=== PATIENT | female | born 1980 | race Caucasian/White ===

== ENCOUNTER 2019-02-03 19:13 | Emergency (ER) | payer OTHER, MEDICAID, SELFPAY ==
[2019-02-03 19:24] VITALS: BP 118/84; PULSE 108; RESP 18; TEMP 36.6; O2SAT 91; BMI 53.1
--- NOTE | 2019-02-03 19:35 | ED.CHESTPAIN ---
HPI - Chest Pain General Chief Complaint: Chest Pain Stated Complaint: Chest pain, sob, nausea Time Seen by Provider: 02/03/19 19:34 Source: patient Mode of arrival: ambulatory Limitations: no limitations History of Present Illness HPI narrative: Patient is a 38-year-old female here for evaluation of a least 5 days of shortness of breath and chest pain. She was seen at an outside facility just a couple days ago where she had a CT angiogram of her chest which was negative. A chest x-ray which was unremarkable. An EKG which was unremarkable. Labs are unremarkable. she has followed up with her primary doctor. She had an appoint with her primary doctor today. They did discuss a referral to see Cardiology to have an ultrasound of her heart performed. She is currently on Coumadin secondary to a left upper extremity DVT. She states that she has been on Coumadin for the past 6 years. 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 She reports today with no changes in any of her symptoms over the past 5 days. She was told to come to this emergency department by her primary doctor to ?see if you can find anything that the other ER missed ? Review of Systems Constitutional Denies fever(s) and Denies headache(s) ENT Ears, Nose, Mouth, and Throat: Denies headache(s) Cardiovascular Reports chest pain, Denies diaphoresis, Denies edema, Denies palpitations and Reports dyspnea Respiratory Denies cough and Reports dyspnea Gastrointestinal Gastrointestinal: Denies abdominal pain, Reports nausea and Denies vomiting Genitourinary Denies dysuria Musculoskeletal Denies myalgias and Denies arthralgias Integumentary/Breasts Denies rash Neurologic Denies headache(s) Endocrine Denies palpitations Hematologic/Lymphatic Comments: On Coumadin Allergic/Immunologic Denies urticaria [facility] Medical History Anxiety (Acute) Bipolar 1 disorder (Acute) DVT (deep venous thrombosis) (Acute) Depression (Acute) Hypothyroid (Acute) Social History Smoking Status: Former smoker Social History Smoking Status: Former smoker Exam Initial Vital Signs Initial Vital Signs: Vital Signs Temperature 97.9 F 02/03/19 19:24 Pulse Rate 108 H 02/03/19 19:24 Respiratory Rate 18 02/03/19 19:24 Blood Pressure 118/84 02/03/19 19:24 Pulse Oximetry 91 02/03/19 19:24 Const General: cooperative, well developed, well groomed and No acute distress Orientation: alert and oriented x3 HENMT Head: normal to inspection and normocephalic Resp Effort & Inspection: normal respiratory effort Auscultation: clear to auscultation bilaterally Cardio Rate: tachycardic Rhythm: regular rhythm Pulses: radial pulses present GI Inspection: non-distended Palpation: soft, No firm and No tender Skin Lesions: no lesions Rashes: no rashes Neuro General: alert, awake and oriented x3 Cognition: normal cognition Speech: speech normal Extrem General: normal to inspection and capillary refill normal Psych Appearance: grossly normal and well kempt Course Orders Ordered: ED Orders 02/03/19 20:40 Basic Metabolic Panel Stat Complete Blood Count AUTO DIFF Stat Troponin I Stat Discontinued Medications Hydrocodone Bitart/Acetaminophen ([place] 5/325) 1 tab PO NOW ONE Stop: 02/03/19 20:46 Last Admin: 02/03/19 20:55 Dose: 1 tab Ondansetron HCl (Zofran Odt) 4 mg PO NOW ONE Stop: 02/03/19 20:46 Last Admin: 02/03/19 20:54 Dose: 4 mg Vital Signs - 8 hr 02/03/19 19:24 02/03/19 20:32 02/03/19 21:25 Temperature 97.9 F Pulse Rate 108 H 101 H 93 H Respiratory Rate 18 18 16 Blood Pressure 118/84 Blood Pressure [Left Arm] 125/62 99/59 L Pulse Oximetry 91 90 L 93 MDM - Chest Pain Lab Data Attestation: I reviewed the patient's lab results. Result diagrams: 02/03/19 20:40 02/03/19 20:40 Lab Results 02/03/19 02/03/19 02/03/19 Range/Units 20:40 20:40 20:40 WBC 10.3 (4.5-11.0) X10^3/uL RBC 5.55 H (4.0-5.2) X10^6/uL Hgb 16.6 H (12.0-16.0) g/dL Hct 49.4 H (36-46) % MCV 88.9 (80-100) fL MCH 29.8 (26-34) PG MCHC 33.6 (30-36) % RDW 14.2 (11.6-14.8) % Plt Count 243 (150-400) X10^3/uL Neut % (Auto) 52.7 (50-75) % Lymph % (Auto) 36.9 (25-40) % [place] % (Auto) 6.7 (3-14) % Eos % (Auto) 2.3 (2-4) % Baso % (Auto) 1.4 (0-2) % Neut # (Auto) 5400 (6288-5366) /uL Lymph # (Auto) 3800 (6181-9666) /uL [place] # (Auto) 700 (0-900) /uL Eos # (Auto) 200 (0-450) /uL Baso # (Auto) 100 (0-100) /uL Sodium 142 (137-145) mmol/L Potassium 3.2 L (3.4-5.1) mmol/L Chloride 101 (98-107) mmol/L Carbon Dioxide 31 (22-32) mmol/L BUN 17 (7-17) mg/dL Creatinine 0.70 (0.52-1.04) mg/dL Estimated GFR > 60.0 (>60) mL/min BUN/Creatinine Ratio 24.3 H (6-22) Glucose 109 H (70-100) mg/dL Calcium 9.6 (8.4-10.2) mg/dL Troponin I < 0.012 (0.01-0.034) ng/mL ECG Data Attestation: I personally reviewed and interpreted this ECG as follows: Prior ECG tracings: available for review Interpretation: Sinus tachycardia Ventricular rate of 101 Normal axis Normal QRS Normal QTC No ST T wave changes Comparison EKG from her last ER visit at the outside facility dated 02/01/2019. Today's EKG is unchanged from this 1 MDM Narrative Medical decision making narrative: Patient has had constant symptoms for the past couple days. Her troponin was negative today. Her EKG is unremarkable is unchanged from her prior ER visit. She had extensive cardiac workup at that time to include a CT of her chest which is negative for pulmonary embolism. She has no new symptoms today. Tried to reassure the patient that she is low risk for cardiovascular disease. She has already seen her primary doctor. She has referral in to see cardiology. We did discuss that she should talk with her primary doctor about a Holter monitor. Patient expressed understanding and agreement with plan. Discharge Plan Departure Patient Disposition: Home Clinical Impression: Chest pain Qualifiers: Chest pain type: unspecified Qualified Code(s): R07.9 - Chest pain, unspecified Discharge Date/Time: 02/03/19 22:00 Interventions: ED Discharge Assessment Last Done: 02/03/19 22:08 Instructions: DI for Atypical Chest Pain Activity Restrictions/Additional Instructions: Continue all of your scheduled medical appointments. Take all of your medications as directed. Return to the emergency department for any new or worsening symptoms
[2019-02-03 20:32] VITALS: BP 125/62; PULSE 101; RESP 18; O2SAT 90
[2019-02-03 20:51] LABS: Add Manual Diff / Slide Review NO; Basophils Absolute Auto 100 /uL (0-100); Basophils Percent Auto 1.4 % (0-2); Eosinophils Absolute Auto 200 /uL (0-450); Eosinophils Percent Auto 2.3 % (2-4); Hematocrit 49.4 % (36-46); Hemoglobin 16.6 g/dL (12.0-16.0); Lymphocytes Absolute Auto 3800 /uL (1100-4500); Lymphocytes Percent Auto 36.9 % (25-40); Mean Corpuscular HGB Conc 33.6 % (30-36); Mean Corpuscular Hemoglobin 29.8 PG (26-34); Mean Corpuscular Volume 88.9 fL (80-100); Monocytes Absolute Auto 700 /uL (0-900); Monocytes Percent Auto 6.7 % (3-14); Neutrophils Absolute Auto 5400 /uL (1500-7000); Neutrophils Percent Auto 52.7 % (50-75); Platelet Count 243 X10^3/uL (150-400); Red Blood Cell Count 5.55 X10^6/uL (4.0-5.2); Red Cell Distribution Width 14.2 % (11.6-14.8); White Blood Cell Count 10.3 X10^3/uL (4.5-11.0)
[2019-02-03] MEDS: ONDANSETRON 4 MG ODT PO (20:54)
[2019-02-03] MEDS: HYDROCODONE/ACET 5/325 TABLET 1 TAB PO (20:55)
--- NOTE | 2019-02-03 21:00 | PC.NURSE ---
Pt states SOB and CP for past 5 days, was seen at [facility] 2 days ago for same and Discharged after negative Labs, EKG, Xray and CT angiogram. PT states hx of DVT in left Upper extremity and on coumadin. a least 5 days of shortness of breath and chest pain. She was seen at an outside facility just a couple days ago where she had a CT angiogram of her chest which was negative. Pt states is here for a second opinion to ?see if you can find anything that the other ER missed ?. Pt also states she has also been recently stressed regarding moving to [place].
[2019-02-03 21:08] LABS: BUN Creatinine Ratio 24.3 (6-22); Blood Urea Nitrogen 17 mg/dL (7-17); Calcium 9.6 mg/dL (8.4-10.2); Carbon Dioxide 31 mmol/L (22-32); Chloride 101 mmol/L (98-107); Estimated Glomerular Filt Rate > 60.0 mL/min (>60); Glucose 109 mg/dL (70-100); HEMOLYSIS < 15 (0-50); Potassium 3.2 mmol/L (3.4-5.1); Sodium 142 mmol/L (137-145)
[2019-02-03 21:20] LABS: Troponin I < 0.012 ng/mL (0.01-0.034)
[2019-02-03 21:25] VITALS: BP 99/59; PULSE 93; RESP 16; O2SAT 93
== END 2019-02-03 22:00 | disposition home or self-care (01) ==
PROVIDERS: Emergency Provider Emergency Medicine
DX: R07.9 Chest pain, unspecified (principal); R06.02 Shortness of breath; R11.0 Nausea; Z79.01 Long term (current) use of anticoagulants
CPT/HCPCS: 36415; 80048; 84484; 85025; 93005; 99282; 99284

== ENCOUNTER 2019-02-07 12:51 | Emergency (ER) | payer OTHER, MEDICAID, SELFPAY ==
[2019-02-07 12:58] VITALS: BP 110/86; PULSE 89; RESP 17; TEMP 37.2; O2SAT 96; BMI 51.5
[2019-02-07 13:00] VITALS: BP 114/83; PULSE 91; RESP 14; O2SAT 92
--- NOTE | 2019-02-07 13:28 | PC.NURSE ---
Pt noted to have 02 87% on RA and placed on 2L by Ruth MAJOR. Lungs clear, pt reports she usually wears a CPAP machine w/oxygen at night to sleep but left it in [place] and hasn't had one since June of last year. She reports her anxiety has been going on for a couple of days but escalated today and came to a head. pt doesn't appear to be struggling to breath, reports anxiety feelings only. Bumped up oxygen to 3LNC. EKG within normal limits. Pt reports she needs to be back home by 5 to pickle maker her father as no one else is there to pick him up.
--- NOTE | 2019-02-07 13:32 | ED_ITS ---
HPI - Anxiety General Chief Complaint: Anxiety Stated Complaint: Panic attack / Anxiety Time Seen by Provider: 02/07/19 13:13 Source: patient and EMS Mode of arrival: EMS Limitations: no limitations History of Present Illness HPI narrative: Patient is a 38-year-old female who presents with anxiety attack. She says that it has been building for some time just all came to a head today. She feels extremely anxious but is overall feeling little bit better. She is noted to be slightly hypoxic she states that her normal oxygen level of 89 and 90% while in the hospitals. She is overweight and does have a history of DVT for which he takes Coumadin for. She denies any shortness of breath or chest pain. feels like this with her standard anxiety attack and is overall feeling better. Agrees to blood work. She actually was seen evaluated here just 4 days ago for shortness of breath and chest pain. She states today it was definitely anxiety things had been building up all week and then she exploded. Now she is feeling much better and calmer. MD complaint: anxiety Onset (ago): minute(s) Symptoms: palpitations and extremity numbness/tingling Severity: moderate Quality: improving Related Data Home Medications Medication Instructions Recorded Confirmed albuterol sulfate 1 puff INHALATION PRN PRN 02/07/19 02/07/19 clonazepam 2 mg PO DAILY 02/07/19 02/07/19 escitalopram oxalate 20 mg PO DAILY 02/07/19 02/07/19 hydrochlorothiazide 25 mg PO DAILY 02/07/19 02/07/19 lamotrigine 200 mg PO DAILY 02/07/19 02/07/19 levothyroxine 100 mcg PO DAILY 02/07/19 02/07/19 lorazepam 1 mg PO TID PRN 02/07/19 02/07/19 metoprolol succinate 100 mg PO DAILY 02/07/19 02/07/19 montelukast 10 mg PO DAILY 02/07/19 02/07/19 temazepam 30 mg PO BEDTIME 02/07/19 02/07/19 topiramate 50 mg PO DAILY 02/07/19 02/07/19 warfarin [Jantoven] 5 mg PO QPM 02/07/19 02/07/19 ziprasidone HCl 60 mg PO BID 02/07/19 02/07/19 Allergies Allergy/AdvReac Type Severity Reaction Status Date / Time codeine Allergy Verified 02/07/19 12:57 morphine Allergy Verified 02/07/19 12:57 Review of Systems Review of Systems ROS Unobtainable: All systems reviewed & are unremarkable except as noted in HPI and below Constitutional Denies chills, Denies fever(s), Denies lethargy and Denies weakness Eyes Denies change in vision, Denies eye discharge, Denies irritation and Denies loss of vision Cardiovascular Reports as per HPI, Reports palpitations and Denies dyspnea on exertion Respiratory Reports as per HPI, Denies cough, Denies hemoptysis, Denies pain on inspiration, Denies dyspnea on exertion and Denies stridor Gastrointestinal Gastrointestinal: Denies abdominal pain, Denies change in bowel habits, Denies diarrhea, Denies nausea and Denies vomiting Genitourinary Denies hematuria, Denies flank pain, Denies urinary incontinence and Denies urinary urgency Musculoskeletal Denies back pain, Denies muscle weakness, Denies numbness and Denies tingling Integumentary/Breasts Denies pruritus, Denies erythema, Denies rash and Denies wounds Neurologic Denies loss of vision, Denies numbness, Denies tingling and Denies weakness Psychiatric Reports as per HPI and Reports anxiety Endocrine Reports palpitations [facility] Medical History Anxiety (Acute) Bipolar 1 disorder (Acute) DVT (deep venous thrombosis) (Acute) Depression (Acute) Hypothyroid (Acute) Social History Smoking Status: Former smoker Social History Smoking Status: Former smoker Exam Initial Vital Signs Initial Vital Signs: Vital Signs Temperature 99.0 F 02/07/19 12:58 Pulse Rate 89 02/07/19 12:58 Respiratory Rate 17 02/07/19 12:58 Blood Pressure 110/86 02/07/19 12:58 Pulse Oximetry 96 02/07/19 12:58 GENERAL: Overweight alert female and in [no acute] distress. HEENT: Head atraumatic,EOMI, pupils reactive, face symmetric, CARDIOVASCULAR: Regular rate and rhythm without murmurs, rubs or gallops. RESPIRATORY: Breath sounds equal bilaterally, no wheezes rales or rhonchi. ABDOMEN: Soft, nontender. Normoactive bowel sounds all 4 quadrants. No guarding or rebound. : No CVA tenderness EXTREMITIES: Normal range of motion, no clubbing or edema. Neurovascularly intact NEUROLOGICAL: Alert and oriented x4.Normal gait and speech. Cranial nerves II through XII grossly intact. SKIN: Warm, dry, no laceration, no petechiae, no rashes or lesions. Course Orders Ordered: ED Orders 02/07/19 13:02 EKG-12 Lead Stat 02/07/19 13:41 XR chest 1V Stat 02/07/19 13:54 Complete Blood Count AUTO DIFF Stat Partial Thromboplastin Time Stat Prothrombin Time INR Stat Discontinued Medications Lorazepam (Ativan) 1 mg PO NOW ONE Stop: 02/07/19 13:38 Last Admin: 02/07/19 13:44 Dose: 1 mg Vital Signs - 8 hr 02/07/19 12:58 02/07/19 13:00 02/07/19 14:00 Temperature 99.0 F Pulse Rate 89 91 H 81 Respiratory Rate 17 14 18 Blood Pressure 110/86 Blood Pressure [Left Arm] 114/83 107/65 Pulse Oximetry 96 92 94 MDM - Anxiety Lab Data Attestation: I reviewed the patient's lab results. Result diagrams: 02/07/19 13:54 02/07/19 13:54 Lab Results 02/07/19 02/07/19 02/07/19 Range/Units 13:54 13:54 13:54 WBC 13.9 H (4.5-11.0) X10^3/uL RBC 5.75 H (4.0-5.2) X10^6/uL Hgb 16.9 H (12.0-16.0) g/dL Hct 51.0 H (36-46) % MCV 88.7 (80-100) fL MCH 29.4 (26-34) PG MCHC 33.1 (30-36) % RDW 14.1 (11.6-14.8) % Plt Count 279 (150-400) X10^3/uL Neut % (Auto) 65.0 (50-75) % Lymph % (Auto) 25.5 (25-40) % [place] % (Auto) 7.3 (3-14) % Eos % (Auto) 1.2 L (2-4) % Baso % (Auto) 1.0 (0-2) % Neut # (Auto) 9000 H (3664-4555) /uL Lymph # (Auto) 3500 (7191-2556) /uL [place] # (Auto) 1000 H (0-900) /uL Eos # (Auto) 200 (0-450) /uL Baso # (Auto) 100 (0-100) /uL PT 22.0 H (10.1-12.7) SECONDS INR 1.9 H (0.9-1.3) APTT 37 H (26.4-36.2) SECONDS Sodium Cancelled Potassium Cancelled Chloride Cancelled Carbon Dioxide Cancelled BUN Cancelled Creatinine Cancelled Estimated GFR Cancelled BUN/Creatinine Ratio Cancelled Glucose Cancelled Calcium Cancelled Total Bilirubin Cancelled AST Cancelled ALT Cancelled Alkaline Phosphatase Cancelled Total Creatine Kinase Cancelled CK-MB (CK-2) Cancelled CK-MB (CK-2) Rel Index Cancelled Troponin I Cancelled Total Protein Cancelled Albumin Cancelled Globulin Cancelled Albumin/Globulin Ratio Cancelled Imaging Data Chest x-ray: Radiologist's impression: PROCEDURE: XR CHEST 1V INDICATIONS: chest pain TECHNIQUE: One view of the chest was acquired. COMPARISON: None. FINDINGS: Surgical changes and devices: None. Lungs and pleura: There are low lung volumes. No lobar consolidation, effusion, or pneumothorax is evident. Mediastinum: Mediastinal contours appear normal. Heart size is normal. Bones and chest wall: No suspicious bony lesions. Overlying soft tissues appear unremarkable. IMPRESSION: Unremarkable chest. No acute cardiopulmonary process is evident. Dictated by: Evan Lilly M.D. on 02/07/2019 at 13:00 ECG Data Attestation: I personally reviewed and interpreted this ECG as follows: Prior ECG tracings: available for review Interpretation: Normal sinus rhythm rate [address] changes no T-wave inversion MDM Narrative Medical decision making narrative: Patient states anxiety. according to records she does have low oxygen levels. INR 1.9. At this time patient not having shortness of breath symptoms I do not think she needs a PE study or further testing. He had full workup within the last 10 days including a PE study. Previous study and workup was done at outside facility according to last ER visit. Blood hemolyzed chemistry panel was not run. She did have normal chem istry panel 4 days ago. At this time patient is overall feeling much better and feels ready and able to go home. Discharge Plan Departure Patient Disposition: Home Clinical Impression: Anxiety Discharge Date/Time: 02/07/19 14:50 Interventions: ED Discharge Assessment Last Done: 02/07/19 14:56 Instructions: Anxiety Disorders Activity Restrictions/Additional Instructions: *You have been diagnosed with anxiety *What to do: INR today is 1.9, goal is between 2.0 and 3.0. Please follow-up with your PCP in regards to Coumadin management. He may also need more medication anxiety *Continue to take medications as directed *Follow up with your primary care provider in 2-3 days *Return to ER if you should have worsening chest pain, shortness[or] any new, worsening or concerning symptoms Prescriptions: No Action lamotrigine 200 mg tablet 200 mg PO DAILY RF: 0 metoprolol succinate 100 mg tablet extended release 24 hr 100 mg PO DAILY RF: 0 levothyroxine 100 mcg tablet 100 mcg PO DAILY RF: 0 clonazepam 2 mg tablet 2 mg PO DAILY RF: 0 warfarin [Jantoven] 5 mg tablet 5 mg PO QPM RF: 0 montelukast 10 mg tablet 10 mg PO DAILY RF: 0 hydrochlorothiazide 25 mg tablet 25 mg PO DAILY RF: 0 lorazepam 1 mg tablet 1 mg PO TID PRN (Reason: Anxiety) RF: 0 albuterol sulfate 90 mcg/actuation HFA aerosol inhaler 1 puff Inhalation PRN PRN (Reason: Shortness Of Breath) RF: 0 escitalopram oxalate 20 mg tablet 20 mg PO DAILY RF: 0 temazepam 30 mg capsule 30 mg PO BEDTIME RF: 0 ziprasidone HCl 60 mg capsule 60 mg PO BID RF: 0 topiramate 50 mg tablet 50 mg PO DAILY RF: 0 Referrals: Carolann Taveras ARNP [Primary Care Provider] -
--- NOTE | 2019-02-07 13:41 | DI.RAD.S_ITS ---
PROCEDURE: XR CHEST 1V INDICATIONS: chest pain TECHNIQUE: One view of the chest was acquired. COMPARISON: None. FINDINGS: Surgical changes and devices: None. Lungs and pleura: There are low lung volumes. No lobar consolidation, effusion, or pneumothorax is evident. Mediastinum: Mediastinal contours appear normal. Heart size is normal. Bones and chest wall: No suspicious bony lesions. Overlying soft tissues appear unremarkable. IMPRESSION: Unremarkable chest. No acute cardiopulmonary process is evident. Dictated by: Evan Lilly M.D. on 02/07/2019 at 13:00 Approved by: Evan Lilly M.D. on 02/07/2019 at 13:16
[2019-02-07] MEDS: LORazepam 0.5 MG TABLET 1 MG PO (13:44)
[2019-02-07 14:00] VITALS: BP 107/65; PULSE 81; RESP 18; O2SAT 94
[2019-02-07 14:08] LABS: Add Manual Diff / Slide Review NO; Basophils Absolute Auto 100 /uL (0-100); Eosinophils Absolute Auto 200 /uL (0-450); Eosinophils Percent Auto 1.2 % (2-4); Hemoglobin 16.9 g/dL (12.0-16.0); Lymphocytes Absolute Auto 3500 /uL (1100-4500); Lymphocytes Percent Auto 25.5 % (25-40); Mean Corpuscular HGB Conc 33.1 % (30-36); Mean Corpuscular Hemoglobin 29.4 PG (26-34); Mean Corpuscular Volume 88.7 fL (80-100); Monocytes Absolute Auto 1000 /uL (0-900); Monocytes Percent Auto 7.3 % (3-14); Neutrophils Absolute Auto 9000 /uL (1500-7000); Platelet Count 279 X10^3/uL (150-400); Red Blood Cell Count 5.75 X10^6/uL (4.0-5.2); Red Cell Distribution Width 14.1 % (11.6-14.8); White Blood Cell Count 13.9 X10^3/uL (4.5-11.0)
[2019-02-07 14:12] LABS: INR 1.9 (0.9-1.3)
[2019-02-07 14:15] LABS: PTT Partial Thromboplastin Tim 37 SECONDS (26.4-36.2)
== END 2019-02-07 14:50 | disposition home or self-care (01) ==
PROVIDERS: Emergency Provider Emergency Medicine; PCP Nurse Practitioner Gerontology
DX: F41.9 Anxiety disorder, unspecified (principal); R09.02 Hypoxemia; R00.2 Palpitations; R20.0 Anesthesia of skin; Z79.01 Long term (current) use of anticoagulants
CPT/HCPCS: 36591; 71045; 85025; 85610; 85730; 93005; 99283; 99285